=== PATIENT | female | born 1945 | race Caucasian/White ===

== ENCOUNTER 2017-12-19 16:17 | Inpatient (IN) | payer OTHER ==
--- NOTE | 2017-12-19 16:27 | EDPHY ---
H & P Time Seen by Provider: 12/19/17 16:26 HPI/ROS: CHIEF COMPLAINT: Shortness of breath and feet swelling HISTORY OF PRESENT ILLNESS: The patient is a 72 y/o female arriving to the emergency department after her PCP noticed that the patient had an O2Sat of 85% and bilateral pedal edema. For the past 2 weeks she has had cold and flu-like symptoms including a runny nose, cough, and worsening leg swelling. She has also had an intermittent burning sensation in her upper abdomen and chest which she thought was due to reflux. Several days ago she began to feel more short of breath than normal; including walking from her car to work. Yesterday the cough stopped, but she still feels short of breath. Today she had several episodes of vomiting and became concerned as most of her symptoms were not improving; so she decided to go to her PCP who then sent her to the ED. Denies cardiac or pulmonary problems. Denies fever, chest pain, abdominal pain, numbness, paresthesias. REVIEW OF SYSTEMS: Aside from elements discussed in the HPI, a comprehensive 10-point review of systems was reviewed and is negative. Past Medical/Surgical History: Denies Social History: Lives in [place], single, works for [employer] Smoking Status: Never smoked Physical Exam: General Appearance: Alert, pleasant Eyes: Pupils equal and round, no conjunctival pallor or injection ENT, Mouth: Mucous membranes moist Neck: Normal inspection Respiratory: Lungs are clear to auscultation Cardiovascular: Regular rate and rhythm Gastrointestinal: Abdomen is soft and non-tender Neurological: A&O, nonfocal Skin: Warm and dry, no rash Extremities: 2+ bilateral pitting pedal edema with tenderness Psychiatric: Mood and affect normal Constitutional: Initial Vital Signs Temperature (C) 36.8 C 12/19/17 16:18 Heart Rate 85 12/19/17 16:18 Respiratory Rate 18 12/19/17 16:18 Blood Pressure 166/84 H 12/19/17 16:18 O2 Sat (%) 95 12/19/17 16:18 O2 Delivery Mode Room Air Allergies/Adverse Reactions: adhesive tape Allergy (Intermediate, Verified 12/19/17 16:17) BLISTERS, ITCHY Home Medications: Medication Instructions Recorded Doxylamine Succinate [Sleep Aid] 12.5 mg PO HS PRN 12/19/17 Herbals/Supplements -Info Only 1 ea PO DAILY 12/19/17 Multivitamins [Multivitamin (*)] 1 each PO DAILY 12/19/17 Medical Decision Making - Diagnostics EKG Interpretation: EKG interpreted by me reveals normal sinus rhythm with a rate of 84 and poor R wave progression, normal axis, normal intervals, ST and T segments normal. Interpretation: normal EKG Imaging Results: Imaging Impressions Chest/Thorax CTA 12/19/17 17:26 Impression: 1. Small volume of acute thrombopulmonary embolic disease. No evidence of right heart strain. 2. Lymphadenopathy in the thoracic inlet and superior mediastinum. Recommend short-term 3 month follow-up CT of the chest with IV contrast versus further characterization now with PET/CT. 3. Ascites. 4. Suboptimally characterized liver. Query cirrhosis. Findings discussed with Emergency Department physician, Marsha Spring on 2017, 18:10. Abdomen Ultrasound 12/19/17 18:05 Impression: 1. Suspect early mild cirrhosis. 2. Small ascites. Patent portal vein. Normal-size spleen. 3. Cholelithiasis. 4. Minimal common bile duct dilatation. No evidence of common bile duct stone. Findings discussed with Emergency Department physician, Dr. Marsha Spring on December 19, 2017 at 1930 hours. Imaging: Discussed imaging studies w/ scallop shucker Radiologist, I viewed and interpreted images myself ED Course/Re-evaluation: The patient is a 72 y/o female presenting with SOB and peripheral edema. Concerning presentation for pulm edema, ACS. EKG, labs, and chest x-ray ordered. 1644: EKG interpreted by me reveals normal sinus rhythm with a rate of 84 and poor R wave progression. No acute ischemic changes. 1726: Patient's d-dimer is 15.1; chest CTA ordered to r/o PE. 1805: Spoke with radiologist, he reports the patient has right middle and lower lobe emboli. Heparin IV started per weight based protocol for the PE. Abd and pelvic US ordered to further evaluate inconclusive abdominal findings. Concern for malignancy with new onset ascites, GI sx and mediastinal adenopathy. Abd sono ordered. 1807: Consulted with hospitalist service, Dr. Vo accepts admission of this patient. 1814: Reassessed patient and discussed laboratory and imaging findings. I have discussed plan for admission; she is comfortable with this plan. 1950: Spoke with radiologist regarding sono findings. Differential Diagnosis: includes though not limited to pulm edema, pneumonia, ACS, bronchospasm, malignancy - Data Points Laboratory Results: Laboratory Results 12/19/17 16:45 12/19/17 16:45 Medications Given: Melatonin (Melatonin) 3 mg PO HS PRN PRN Reason: Sleep/Insomnia Stop: 06/17/18 21:29 Last Admin: 12/20/17 02:24 Dose: 3 mg Multivitamins (Tab-A-Benedict) 1 each PO DAILY LOLA Stop: 06/18/18 08:59 Last Admin: 12/20/17 08:45 Dose: Not Given Nystatin (Mycostatin Powder) 1 krissy TP TID LOLA Stop: 01/18/18 22:14 Last Admin: 12/20/17 08:45 Dose: Not Given Discontinued Medications Heparin Sodium (Porcine) (Heparin Injection) 0 unit IVP EDNOW ONE PRN Reason: Protocol Stop: 12/19/17 18:06 Last Admin: 12/19/17 18:28 Dose: 6,100 units Heparin Sodium (Porcine) (Heparin 50 Units/Ml (Premix)) 500 mls @ 0 mls/hr IV EDNOW ONE; Per Protocol PRN Reason: Protocol Stop: 12/19/17 18:06 Last Admin: 12/19/17 18:29 Dose: 500 mls Ondansetron HCl (Zofran) 4 mg IVP EDNOW ONE Stop: 12/19/17 19:59 Last Admin: 12/19/17 20:08 Dose: 4 mg Departure - Departure Disposition: [facility] Acute Clinical Impression: Pulmonary embolism on right Condition: Fair Report Scribed for: Marsha Spring Report Scribed by: Amy Morin Date of Report: 12/19/17 Time of Report: 16:26 Physician Review and Approval Statement: 12/19/17 16:26 Portions of this note were transcribed by a medical device sales consultant. I personally performed a history, physical exam, medical decision making, and confirmed accuracy of information the transcribed note.
--- NOTE | 2017-12-19 16:45 | CPEKG ---
Heart Rate: 84 RR Interval: 714 QRSD Interval: 118 QT Interval: 380 QTC Interval: 450 QRS [place]: -30 T Wave [place]: 31 EKG Severity - ABNORMAL ECG - EKG Impression: Normal sinus rhythm EKG Impression: NONSPECIFIC INTRAVENTRICULAR CONDUCTION DELAY EKG Impression: ABNRM R PROG, CONSIDER ASMI OR LEAD PLACEMENT Electronically Signed By: Marsha Spring 19-Dec-2017 21:14:37
[2017-12-19 16:52] LABS: PLATELET COUNT 305 10^3/uL (150-400)
[2017-12-19] MEDS ORDERED: IOPAMIDOL (ISOVUE 370) 100 ML BTL IV ONE (17:32)
[2017-12-19] MEDS ORDERED: HEPARIN 10,000 UNIT/10 ML MDV (1,000 UNIT/ML) IVP ONE (18:05)
[2017-12-19] MEDS ORDERED: HEPARIN/DEXTROSE 500 ML IV ONE (18:05)
[2017-12-19 18:17] LABS: INR 1.19 (0.83-1.16); PROTIME(PATIENT) 15.3 SEC (12.0-15.0)
[2017-12-19] MEDS ORDERED: ONDANSETRON 4 MG/2 ML VIAL IVP ONE (19:58)
[2017-12-19] MEDS ORDERED: ACETAMINOPHEN 325 MG TAB PO PRN (20:03)
[2017-12-19] MEDS ORDERED: ONDANSETRON DISINTEGRATING 4 MG TAB PO PRN (20:03)
[2017-12-19] MEDS ORDERED: ONDANSETRON 4 MG/2 ML VIAL IVP PRN (20:03)
[2017-12-19] MEDS ORDERED: HEPARIN 10,000 UNIT/10 ML MDV (1,000 UNIT/ML) IVP PRN (20:05)
--- NOTE | 2017-12-19 20:33 | GHP ---
[f rep st] HISTORY AND PHYSICAL DATE OF ADMISSION: 12/19/2017 HISTORY OF PRESENT ILLNESS: The patient is a 72-year-old female with minimal past medical history, w ho presents with about a week of abdominal bloating, lower extremity edema, and shortness of breath. She thought she had the flu. She saw her primary care physician, where she was found to be hypoxic on room air and referred to the emergency department. She has had a cough productive of clear sputum , no hemoptysis. She had a previous knee replacement with no evidence of VTE. She has no family his tory of VTE, no recent or prolonged plane or car travel, and no hospitalizations. She does not take estrogen-containing medicines. She has had no abdominal surgeries. She has noticed increased abdominal girth, which she attributed to bloating. She is actively trying to lose weight. She has not had unexplained weight loss. She h as had some night sweats, but they were not drenching. REVIEW OF SYSTEMS: Complete 10-point review of systems conducted and negative except as noted in the HPI. PAST MEDICAL HISTORY: Knee replacements, mild obesity. ALLERGIES: Adhesive tape. HOME MEDICATIONS: None. SOCIAL HISTORY: No tobacco, no alcohol. Works at [employer], originally from [place], [place]. FAMILY HISTORY: Reviewed and unremarkable. PHYSICAL EXAMINATION: VITAL SIGNS: Temp 36.8, blood pressure 166/84, pulse 85, breathing 18 times a minute, 95% on room air. GENERAL: No acute distress. HEENT: Sclerae anicteric. Oropharynx clear . Mucous membranes moist. NECK: Supple without lymphadenopathy or JVD. LUNGS: Clear to auscultat ion bilaterally. HEART: S1, S2. ABDOMEN: Soft, nontender, nondistended. EXTREMITIES: Lower extr emities without edema. Calves nontender. SKIN: Without rash. NEUROLOGIC: Exam is grossly nonfoca l. LABORATORIES: White count 8, hematocrit 41, platelets are 305,000. INR is 1.2. D-dimer is 15. Sod ium 135, potassium 3.7, chloride 109, bicarb 25, BUN 17, creatinine 0.6. Total bilirubin is 0.7, AST is 48. BNP is 264. DIAGNOSTIC STUDIES: CTA of the chest shows small volume thromboembolic disease, ascites, mediastinal lymphadenopathy. I have reviewed and interpreted these images myself. The liver is not adequately evaluated. EKG interpreted by me shows sinus at 84 with normal axis and intervals. No ST or T-wave changes. Chest x-ray interpreted by me shows chronic moderate bronchitis without acute process. An abdominal ultrasound is pending. I have discussed the case Dr. Erica Spring. ASSESSMENT/PLAN: 72-year-old female with pulmonary embolism, ascites, and cell lymphadeno tony. 1. Pulmonary embolism: Small clot burden. Start heparin drip. She is a good candidate for a direc t oral anticoagulant once procedures have been done. 2. Ascites: Concerning for ovarian malignancy. Paracentesis been ordered for tomorrow. It is reas onable and safe to stop her heparin for a few hours given her low clot burden in absence of apparent hemodynamic stress from her pulmonary embolism. I have ordered cytology. Also considered is portal vein thrombosis, and I have ordered a Doppler ultrasound. She has an abdominal ultrasound pending. 3. Mediastinal lymphadenopathy: I suspect this is reactive. We will not specifically cayden this fo r now, as we will evaluate her ascites. 4. Lower extremity edema: We will check lower extremity ultrasounds for clot. DISPOSITION: Inpatient status. PROPHYLAXIS: She is therapeutically anticoagulated. /[id number]/MODL
[2017-12-19] MEDS ORDERED: DOXYLAMINE SUCCINATE 12.5 MG PO PRN (21:00)
[2017-12-19] MEDS: NYSTATIN POWDER 15 GM BTL TP SCH (22:18)
--- NOTE | 2017-12-20 00:34 | PDMN ---
Medical Necessity Medical necessity: C/M review: Patient meets INPT criteria under [facility] M-290 Pulmonary embolism: Acute pulmonary embolism, ascites, mediatinal lymphadenopathy on on CTA, ascites concerning for possible ovarian malignancy, increased abdominal girth, night sweats, requiring planned Doppler US of bilateral lower extremities, 12/20/2017 CT pelvis and paracentesis, ongoing IV Heparin infusion, pulse oximetry. MD anticipates > 2 MN LOS for ongoing med nec for eval and TX of above.
[2017-12-20] MEDS: MELATONIN 3 MG TAB PO PRN ×2 (02:24→20:52)
[2017-12-20 06:41] LABS: PLATELET COUNT 264 10^3/uL (150-400)
[2017-12-20 06:52] LABS: INR 1.27 (0.83-1.16); PROTIME(PATIENT) 16.1 SEC (12.0-15.0)
[2017-12-20] MEDS: MULTIVITAMINS 1 EACH TAB PO SCH (08:45)
[2017-12-20] MEDS: NYSTATIN POWDER 15 GM BTL TP SCH ×3 (08:45→20:52)
[2017-12-20] MEDS ORDERED: Herbals/Supplements -Info Only PO SCH (09:00)
[2017-12-20] MEDS ORDERED: PROTOCOL POTASSIUM 1 DOSE MISC PRN (10:18)
--- NOTE | 2017-12-20 10:30 | HOSPPROG ---
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 Noted to be hypoxic on RA at 84%. Has been noting about a month of abdominal bloating, dyspnea, and possibly some weight gain. Thought she may have "flu" due to concomitant rhinorrhea. Upon hospital evaluation, she is found to have ascites, cirrhosis, L PT vein/ S SVG vein thrombus, small volume PE, LAD of mediastinum/thoracic inlet. #. BARKER/abdominal bloating/ edema: ? R heart strain from untreated sleep apnea versus less likely small volume PE will obtain echo now started on IV lasix and PO Spironolactone #. ascites/cirrhosis: volume too small for paracentesis will start diuretics and refer to GI likely NAFL/ pt counseled on weight loss #. small volume PE: started on IV heparin will transition to DOAC once certain that no invasive procedures need to be undertaken #. AHRF versus CHRF: continue supplemental O2 and treatment for PE outpatient sleep study #. LE DVT: on heparin currently #. morbid obesity: BMI 40 #. LOS: inpt due to ongoing need of testing and workup for hypoxia Subjective: Dyspnea better on O2. Still noting edema, abdominal bloating. No pnd /orthopnea, palpitations, cp. Objective: Vital Signs Temp Pulse Resp BP Pulse Ox 98.6 F 76 16 145/78 H 96 12/20/17 08:00 12/20/17 08:00 12/20/17 08:00 12/20/17 08:00 12/20/17 08:00 Laboratory Results 12/20/17 06:30 12/20/17 06:30 12/19/17 12/20/17 12/21/17 05:59 05:59 05:59 Intake Total 70 Balance 70 PT 16.1 SEC (12.0-15.0) H 12/20/17 06:30 INR 1.27 (0.83-1.16) H 12/20/17 06:30 - Time Spent With Patient Time Spent with Patient: greater than 25 minutes Time Spent with Patient: Greater than 25 minutes spent on this patients care, greater than 50% of time spent counseling, educating, and coordinating care regarding the above mentioned plan. - Pending Discharge Pending Discharge Within 24 Hours: No - Physical Exam Constitutional: no apparent distress, appears nourished Eyes: anicteric sclera Ears, Nose, Mouth, Throat: moist mucous membranes, hearing normal Cardiovascular: regular rate and rhythym, no murmur, rub, or gallop Respiratory: no respiratory distress, no rales or rhonchi Gastrointestinal: normoactive bowel sounds, distension Skin: warm, normal color Neurologic: AAOx3 Psychiatric: interacting appropriately, not anxious ICD10 Worksheet Patient Problems: Problems Problem Status Onset Pulmonary embolism on right Acute
[2017-12-20] MEDS ORDERED: IOPAMIDOL (ISOVUE-300) 100 ML BTL ONE (10:52)
[2017-12-20] MEDS: HEPARIN/DEXTROSE 500 ML IV SCH (11:14)
[2017-12-20] MEDS: FUROSEMIDE 40 MG/4 ML VIAL IVP SCH (11:15)
[2017-12-20] MEDS: SPIRONOLACTONE 25 MG TAB PO SCH (11:15)
[2017-12-20] MEDS: TEMAZEPAM 15 MG CAP PO SCH (20:52)
[2017-12-20] MEDS ORDERED: POTASSIUM CL 10 MEQ TAB PO ONE (20:53)
[2017-12-21] MEDS: HEPARIN/DEXTROSE 500 ML IV SCH ×2 (03:15→20:51)
[2017-12-21] MEDS: FUROSEMIDE 40 MG/4 ML VIAL IVP SCH (08:39)
[2017-12-21] MEDS: SPIRONOLACTONE 25 MG TAB PO SCH (08:40)
[2017-12-21] MEDS: NYSTATIN POWDER 15 GM BTL TP SCH ×3 (08:40→20:46)
[2017-12-21] MEDS: MULTIVITAMINS 1 EACH TAB PO SCH (09:43)
--- NOTE | 2017-12-21 14:14 | GCON ---
[f rep st] CONSULTATION ONCOLOGY CONSULTATION NOTE DATE OF CONSULTATION: 12/21/2017 REASON FOR CONSULTATION: Probable ovarian carcinoma. HISTORY OF PRESENT ILLNESS: Ivy is a pleasant 72-year-old female who presented to the hospital wit h approximately 2 weeks of abdominal distention and exertional dyspnea. The patient thought she had influenza. She was seen by her primary care physician and was hypoxemic in the office. She was refe rred to the emergency department. A CT angiogram of the chest done in the emergency department on December 19 revealed small volume acut e thrombo-pulmonary embolic disease. There was some nonspecific mediastinal adenopathy noted as well . Limited views of the upper abdomen revealed moderate volume ascites with a heterogeneous-appearing liver capsule. A subsequent CT of the pelvis revealed an adnexal mass in the right adnexum measuring 8.3 cm in great est dimension. There was evidence of peritoneal carcinomatosis with small volume ascites. There was evidence of retroperitoneal and pelvic lymphadenopathy. Oncology consultation has been requested, given the high degree of suspicion for advanced ovarian car cinoma. The patient denies abdominal pain at the current time. She denies any pelvic pain. She denies vagin al discharge or vaginal bleeding. She denies any chest pain. She denies dyspnea at rest. She is ac companied this afternoon by her friend. PAST MEDICAL HISTORY: Osteoarthritis. PAST SURGICAL HISTORY: None. ALLERGIES: Adhesive tape. MEDICATIONS: The patient was taking no medications prior to hospital admission. FAMILY MEDICAL HISTORY: Positive for colorectal cancer in her father in his 70s. Patient's mother w as diagnosed with breast cancer in her 60s. Patient had a paternal aunt who had ovarian cancer in he r 70s. She reports multiple episodes of cancer in paternal aunts and uncles. SOCIAL HISTORY: The patient is single. She has no children. 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 She is a lifelong nonsmoke r. She does not drink alcohol. REVIEW OF SYSTEMS: As outlined above. Remainder of 12-point review of systems otherwise negative. PHYSICAL EXAM: GENERAL: Patient is resting comfortably in bed. She is in no acute distress. EYES: There is no evidence of scleral icterus. HEART: Regular without murmur. LUNGS: Clear bilaterall y without wheeze, rhonchi, or crackles. ABDOMEN: Obese. Exam is somewhat limited by body habitus. No obvious abdominal distention or ascites. No organomegaly. No palpable abdominal mass. Bowel so unds are normoactive. There is trace bilateral ankle edema. No calf tenderness or swelling bilatera lly. Patient is alert, oriented, and appropriate. CT results as per HPI. Sodium 144, potassium 3.6, chloride 110, bicarb 26, BUN 16, creatinine 0.5, t otal bilirubin is 0.7, AST 45, ALT 45, alk phos 61. White count 6.6, hemoglobin 11.7, platelet count 264,000. Lower extremity ultrasound done on December 20 shows thrombosis of the left posterior tibial veins and left greater saphenous vein. IMPRESSION: 1. 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 2. Small volume bilateral pulmonary emboli. 3. Left lower extremity deep venous thrombosis. 4. Nonspecific mediastinal adenopathy (suspect reactive). 5. Family history of breast and ovarian cancer as well as colon cancer. The patient is a 72-year-old female who presents with symptoms and imaging findings highly suggestive of a locally advanced ovarian carcinoma. I discussed this with the patient and her friend jaja ren. We discussed management of locally advanced ovarian cancer in general. I suspect that the no dularity visualized on her liver represents peritoneal carcinomatosis involving the liver capsule. I would favor initial debulking surgery in this minimally symptomatic patient with an overall good pe rformance status. This would best be done by a gynecologic oncologist. The patient indicates that she would favor seeing a gynecologic oncologist at the [facility], given that she works in the [facility] system. This is certainly reasonable. Our service will attempt to contact the gynecologic oncology service at [facility] tomorr ow to discuss logistics. I think it would be appropriate for the patient to be discharged on either Xarelto or Lovenox tomorrow with outpatient followup, given the minimally symptomatic nature of her d isease. I explained to her that she would require chemotherapy after surgery and that this could be given locally at our [place] office. The patient does have a family medical history suggestive of a hereditary cancer syndrome and eventua l genetic testing is warranted. The patient and her friend had multiple questions which were answered. Total time for today's visit was approximately 60 minutes, of which greater than 50% was spent in cou nseling and care coordination. My partner Dr. Gibbs, will assume her care tomorrow for our group. /[id number]/MODL
--- NOTE | 2017-12-21 14:30 | HOSPPROG ---
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 Noted to be hypoxic on RA at 84%. Has been noting about a month of abdominal bloating, dyspnea, and possibly some weight gain. Thought she may have "flu" due to concomitant rhinorrhea and N/V. Upon hospital evaluation, she is found to have ascites, cirrhosis, L PT vein/ saphenous vein thrombus, small volume PE, LAD of mediastinum/thoracic inlet. #. BARKER/abdominal bloating/ edema: likely due to new diagnosis of ovarian cancer will defer diuretics #. ascites/cirrhosis: volume too small for paracentesis #. nausea: will add scheduled Reglan #. ovarian CA: appreciate Dr. Myrick's consultation tax services manager-onc at [facility] [place] will be contacted by our oncology services for referral for possible debulking #. small volume PE: started on IV heparin may transition to Xarelto or other DOAC versus staying on heparin if surgical debulking will occur in the next few days #. AHRF versus CHRF: continue supplemental O2 prn #. LE DVT: on heparin currently #. morbid obesity: BMI 40 #. LOS: anticipated date of discharge 12/22/17 Subjective: Notes ongoing N making it difficult to eat. Stubbed her toe and now has a bruise on her great toe. Objective: Vital Signs Temp Pulse Resp BP Pulse Ox 98.1 F 78 16 144/79 H 91 L 12/21/17 11:13 12/21/17 11:13 12/21/17 11:13 12/21/17 11:13 12/21/17 11:13 Laboratory Results 12/20/17 06:30 12/21/17 05:55 12/20/17 12/21/17 12/22/17 05:59 05:59 05:59 Intake Total 70 398.4 Output Total 300 Balance 70 398.4 -300 PT 16.1 SEC (12.0-15.0) H 12/20/17 06:30 INR 1.27 (0.83-1.16) H 12/20/17 06:30 - Physical Exam Constitutional: no apparent distress, appears nourished Eyes: PERRL, anicteric sclera Ears, Nose, Mouth, Throat: moist mucous membranes Cardiovascular: regular rate and rhythym, no murmur, rub, or gallop Respiratory: no respiratory distress, no rales or rhonchi Gastrointestinal: normoactive bowel sounds, distension Skin: warm, normal color Neurologic: AAOx3 ICD10 Worksheet Patient Problems: Problems Problem Status Onset Pulmonary embolism on right Acute
[2017-12-21] MEDS: METOCLOPRAMIDE 5 MG TAB PO SCH ×2 (16:23→20:45)
[2017-12-21] MEDS ORDERED: oxyCODONE IR 5 MG TAB PO PRN (18:50)
[2017-12-21] MEDS ORDERED: POTASSIUM CL 10 MEQ TAB PO ONE (20:29)
[2017-12-21] MEDS: MELATONIN 3 MG TAB PO PRN (20:45)
[2017-12-21] MEDS: TEMAZEPAM 15 MG CAP PO SCH (20:46)
[2017-12-22 04:21] VITALS: RESP 16; TEMP 98.4
[2017-12-22] MEDS: METOCLOPRAMIDE 5 MG TAB PO SCH ×2 (05:53→11:10)
[2017-12-22 07:44] VITALS: BP 140/81; PULSE 71; O2SAT 91
[2017-12-22] MEDS: MULTIVITAMINS 1 EACH TAB PO SCH (08:39)
[2017-12-22] MEDS: NYSTATIN POWDER 15 GM BTL TP SCH (08:39)
--- NOTE | 2017-12-22 09:14 | ECHO ---
[email or web address] [address] Main: [phone] Fax: [email or web address] Echocardiogram Name: WILBUR GREEN MR#: [id number] Study Date: 12/20/2017 Study Time: 10:51 AM Date of : 1945 Age: 72 year(s) Height: 160 cm (63 in.) Weight: 102.97 kg (227 lb.) BSA: 2.04 m2 Gender: Female Examination: Echo Indication: edema, Cardiac: dyspnea, pulmonary edema Image Quality: Adequate Contrast: Requested by: Mirna Mina BP: 145 mmHg/78 mmHg Heart Rate: Rhythm: Normal sinus rhythm Indication: edema, Cardiac: dyspnea, pulmonary edema Procedure Staff Motion Picture Camera Lens Technician: Migdalia Mckeon [facility] Reading Physician: Nicolle Su MD Requesting Provider: Conclusions: Normal size left ventricle. Borderline concentric LV hypertrophy. Normal global systolic LV function. EF is 64 %. No regional wall motion abnormality. Grade 1 diastolic dysfunction (abnormal relaxation). Normal size right ventricle. Normal RV function. Trivial tricuspid valve regurgitation. Pulmonary artery pressure is not obtained due to inadequate TR jet. There is no previous echocardiogram for comparison. Measurements: Chambers Valvular Assessment AV/MV Valvular Assessment TV/PV Normal Normal Normal Name Value Range Name Value Range Name Value Range Ao Jacey (MM): 2.5 cm (2.2 cm-3.7 AV Vmax: 1.80 m/s (1 m/s-1.7 PV Vmax: 0.84 m/s (0.6 m/s-0.9 cm) m/s) m/s) IVSd (2D): 1.0 cm (0.6 cm-1.1 AV maxP mmHg ( - ) PV PGmax: 3 mmHg ( - ) cm) LVOT Vmax: 1.22 m/s (0.7 m/s-1.1 LVDd (2D): 4.4 cm (3.9 cm-5.3 m/s) cm) MV E Vmax: 0.75 m/s ( - ) LVDs (2D): 3.1 cm (2.1 cm-4 MV A Vmax: 0.93 m/s ( - ) cm) MV E/A: 0.81 ( - ) LVPWd (2D): 1.0 cm ( - ) LVEF (MOD4): 64 % (>=55 %) RVDd(2D): 3.1 cm (1.9 cm-3.8 cmmm) Continued Measurements: Patient: WILBUR GREEN Study Date: 12/20/2017 Page 1 of 2 10:51 AM Chambers Valvular Assessment AV/MV Name Value Name Value LADs Lon.8 cm MV DecTime: 236 m/s LA Area: 19.8 cm2 MV E/E' Septal: 11.30 LA Volume: 59 ml MV E/E' Lateral: 8.30 LA Volume Index: 28.9 ml/m2 TAPSE: 2.1 cm RA Area: 14.6 cm2 Additional Vessels Name Value Ao Ascendin.9 cm Findings: Left Ventricle: Normal size left ventricle. Borderline concentric LV hypertrophy. Normal global systolic LV function. EF is 64 %. No regional wall motion abnormality. Grade 1 diastolic dysfunction (abnormal relaxation). Right Ventricle: Normal size right ventricle. Normal RV function. Left Atrium: The left atrium is normal in size. Right Atrium: The right atrium is normal in size. Mitral Valve: Mild mitral annular calcification. Trivial mitral valve regurgitation. No mitral stenosis is present. Aortic Valve: The aortic valve is tri-leaflet and functions normally. There is no aortic valve regurgitation. No aortic valve stenosis is present. Tricuspid Valve: The tricuspid valve is normal in appearance and function. Trivial tricuspid valve regurgitation. Pulmonary artery pressure is not obtained due to inadequate TR jet. Pulmonic Valve: The pulmonic valve is normal in appearance and function. There is no pulmonic regurgitation seen. Aorta: The aorta is normal. Normal size aortic root measuring 2.5 cm. Normal size ascending aorta measuring 2.9 cm. IVC: The IVC is normal sized. Pericardium: No pericardial effusion. (No Signature Object) Patient: WILBUR GREEN Study Date: 12/20/2017 Page 2 of 2 10:51 AM [id number]
--- NOTE | 2017-12-22 10:33 | HOSPPROG ---
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 Noted to be hypoxic on RA at 84%. Has been noting about a month of abdominal bloating, dyspnea, and possibly some weight gain. Thought she may have "flu" due to concomitant rhinorrhea and N/V. Upon hospital evaluation, she is found to have ascites, cirrhosis, L PT vein/ saphenous vein thrombus, small volume PE, LAD of mediastinum/thoracic inlet. Today is my first encounter w the patient, chart reviewed. #. BARKER/abdominal bloating/ edema: likely due to new diagnosis of ovarian cancer will defer diuretics #. ascites/cirrhosis: volume too small for paracentesis #. nausea: no c/o of this today #. probable ovarian CA: appreciate Dr. Myrick's consultation echo technician-onc at [facility] will be contacted by our oncology services for referral for possible debulking #. small volume PE and left lower ext DVT started on IV heparin, likely dc on Lovenox in case they want to hold for any procedures reviewed w the patient she will need ongoing anticoagulation #. AHRF versus CHRF: appears euvolemic, not requiring oxygen today #. morbid obesity: BMI 40 #Plan: likely dc today after Dr Gibbs sees her Objective: Vital Signs Temp Pulse Resp BP Pulse Ox 36.9 C 71 16 140/81 H 91 L 12/22/17 07:41 12/22/17 07:41 12/22/17 07:41 12/22/17 07:41 12/22/17 07:41 Laboratory Results 12/20/17 06:30 12/22/17 05:50 12/21/17 12/22/17 12/23/17 05:59 05:59 05:59 Intake Total 398.4 300 Output Total 300 Balance 398.4 0 PT 16.1 SEC (12.0-15.0) H 12/20/17 06:30 INR 1.27 (0.83-1.16) H 12/20/17 06:30 - Physical Exam Constitutional: no apparent distress, appears nourished, not in pain, obese Eyes: PERRL Ears, Nose, Mouth, Throat: hearing normal Cardiovascular: regular rate and rhythym, no murmur, rub, or gallop Respiratory: no respiratory distress Skin: warm Musculoskeletal: full muscle strength Neurologic: AAOx3 Psychiatric: interacting appropriately, not anxious ICD10 Worksheet Patient Problems: Problems Problem Status Onset Pulmonary embolism on right Acute
[2017-12-22] MEDS ORDERED: POTASSIUM CL 10 MEQ TAB PO ONE (11:20)
--- NOTE | 2017-12-22 11:35 | ASMTCMCOM ---
CM Note CM Note Notes: LUIS ALBERTO spoke w/ Nimisha RN regarding d/c POC. Pt is a 72 y/o female admitted for hypoxia and abdominal bloating and PE/DVT. Pt will most likely d/c independent when medically stable. Pt would like to follow up with outpatient oncology at [facility]. Plan: Independent Date Signed: 12/22/2017 11:35 AM Electronically Signed By:EM Sevilla
--- NOTE | 2017-12-22 13:09 | SOAPPROG ---
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 - probable ovarian CA - CA 125 is markedly elevated at 8530. This in conjunction with the clinical presentation and findings on CT are highly suspicious for ovarian CA. The next step in her evaluation for this is consultation with a gynecologic oncologist. She works for the [employer] and would like the opinion there. I offered to contact Dr. Miles Hernandez to arrange a consultation, but she would like me to hold off until she can do some additional networking with her colleagues at the [facility]. - I discussed with her that if the diagnosis is confirmed and she is optimally debulked, she may be a candidate for IP chemo vs. conventional chemo (taxol/ carbo). We discussed that participation in clinical trials will likely be most apropos either after primary surgery/chemo to try to prevent recurrence or in the clinical setting of recurrent disease. We discussed the difference between palliative and curative treatment intent. Hopefully we will be treating her with curative intent. - With her history of a cousin with ovarian cancer, she should be evaluated for genetic counseling/testing as an outpatient. I would be happy to follow her as an outpatient. Plan: - full dose lovenox to treat current L leg DVT and PE - consultation with SPINE NURSE/ONC at [facility] - patient would like to arrange. I offered to help facilitate. She will let me know. - further treatment planning once we have to wait for the results of her surgery - genetic counseling as an outpatient - she is OK for D/C to home from the oncology point of view Subjective: No new complaints. She is OK with using lovenox for anticoagulation. She is checking her network at the [facility] for recommendations for SPINE NURSE/ ONC opinion. Objective: Vital Signs Temp Pulse Resp BP Pulse Ox 36.9 C 71 16 140/81 H 91 L 12/22/17 07:41 12/22/17 07:41 12/22/17 07:41 12/22/17 07:41 12/22/17 07:41 Laboratory Results 12/20/17 06:30 12/22/17 05:50 12/20/17 12/21/17 12/22/17 23:59 23:59 23:59 Intake Total 548.4 150 Output Total 300 Balance 248.4 150 PT 16.1 SEC (12.0-15.0) H 12/20/17 06:30 INR 1.27 (0.83-1.16) H 12/20/17 06:30 Physical Exam - Physical Exam General Appearance: WD/WN, alert, no apparent distress Respiratory: lungs clear Cardiac/Chest: regular rate, rhythm Extremities: non-tender Neuro/Psych: alert, normal mood/affect, oriented x 3 ICD10 Worksheet Patient Problems: Problems Problem Status Onset Pulmonary embolism on right Acute
--- NOTE | 2017-12-22 14:44 | GDS ---
[f rep st] DISCHARGE SUMMARY DISCHARGE DIAGNOSES: 1. Dyspnea on exertion with associated abdominal bloating and edema. 2. Ascites, cirrhosis. 3. Nausea. 4. Probable ovarian cancer. 5. Small volume pulmonary embolism and left lower extremity deep venous thrombosis. 6. Morbid obesity. She has a body mass index of 40. CONSULTATIONS: Dr. Myrick HISTORY OF PRESENT ILLNESS: Briefly, the patient is a 72-year-old with minimal past medical history other than bilateral knee surgeries in last year, who presented to see her primary care provider prior to admission. She was noted to be hypoxic on room air, 84%. She has also been noting that she has abdominal bloating, dyspnea, and some weight gain. She thought she had the flu. She subsequently had a CTA which showed a small volume of acute thrombopulmonary disease. No evidence of right heart strain. It also noted that she had lymphadenopathy in the thoracic inlet and superior mediastinum. The recommendation is for followup of the CT chest. She also has ascites. She subsequently had an abdominal ultrasound because of having some abdominal pain. This showed mild cirrhosis, small ascites with a patent portal vein and cholelithiasis. She has minimal common bile duct dilatation. A CT of the pelvis was done on the . This showed a complex cystic right adnexal mass suspicious for ovarian cancer. She has carcinomatosis with a small volume of ascites. She has retroperitoneal pelvic adenopathy suggesting elidia metastasis. She also has a calcified subcutaneous nodule in the right pelvis which could relate to metastasis, sequela of previous trauma, or other etiology. Subsequently, she was seen and evaluated by Dr. Myrick. She will go down to [facility] for further evaluation. She had a CA-125 antigen that was elevated at 8530. Today she will be discharged on treatment dose of Lovenox subcutaneous twice daily. This will be used instead of oral agents because she will likely require future procedures. HOSPITAL COURSE: By problem: 1. Dyspnea on exertion with abdominal bloating and edema. This is likely due to a new diagnosis of ovarian cancer. 2. Ascites, cirrhosis. The volume is too small for paracentesis. 3. Nausea. No further complaints. 4. Probable ovarian cancer. She will get gynecology/oncology evaluation at [facility]. Dr. Gibbs is working on this referral. 5. Small volume PE and left lower extremity DVT. Will treat her with Lovenox and avoid oral anticoagulation because she will need debulking. 6. Concern for acute hypoxemic respiratory failure versus chronic hypoxemic respiratory failure. She is stable. She is not requiring oxygen. 7. Morbid obesity. She has a BMI of 40. DISCHARGE CONDITION: Stable. Blood pressure is 140/81, O2 sats on room air 91% , respiratory rate 16, pulse is 67 , temperature is 36.9 Celsius. PENDING LABORATORY: None. DISCHARGE INSTRUCTIONS: 1. To follow up with [facility] . Dr Gibbs will be in contact with them. 2. Can start the Lovenox this evening at 6 p.m. Greater than 30 minutes discharging and coordinating the patient's care. Copy requested to: Dr. Gibbs /[id number]/MODL [id number]
[2017-12-22] MEDS ORDERED: ENOXAPARIN 100 MG/ML SYR SC SCH (21:00)
== END 2017-12-22 14:37 | disposition home or self-care (01) | DRG 176 ==
LOC: F3E 20:18
PROVIDERS: ADMIT Internal Medicine; ATTEND Hospitalist
DX: I26.99 Other pulmonary embolism without acute cor pulmonale (principal); C56.9 Malignant neoplasm of unspecified ovary; R06.09 Other forms of dyspnea; C78.6 Secondary malignant neoplasm of retroperitoneum and peritoneum; R18.8 Other ascites; I82.442 Acute embolism and thrombosis of left tibial vein; R59.0 Localized enlarged lymph nodes; M19.90 Unspecified osteoarthritis, unspecified site; E66.01 Morbid (severe) obesity due to excess calories; K74.60 Unspecified cirrhosis of liver; R11.0 Nausea; Z68.41 Body mass index [BMI] 40.0-44.9, adult; Z96.653 Presence of artificial knee joint, bilateral; Z83.0 Family history of human immunodeficiency virus [HIV] disease; Z80.0 Family history of malignant neoplasm of digestive organs
CPT/HCPCS: 85520-90; 86304-90; 96365; 96366; J1644; J1940; J2405; Q9967